=== PATIENT | female | born 1985 | race Caucasian/White ===

== ENCOUNTER 2017-10-02 12:48 | Emergency (ER) | payer MEDICAID ==
[~2017-10-02] VITALS: Ht 157.5 cm; Wt 51.0 kg
[2017-10-02 15:57] VITALS: BP 110/77
== END 2017-10-02 15:52 | disposition home or self-care (01) ==
LOC: ER 12:48
DX: Z00.00 Encounter for general adult medical examination without abnormal findings (principal)
CPT/HCPCS: 81025; 99283; Z7610